=== PATIENT | male | born 1970 | race Caucasian/White ===

== ENCOUNTER 2020-01-29 20:54 | Emergency (ER) | payer OTHER ==
--- NOTE | 2020-01-29 21:46 | EDM.PDOC ---
ED [facility] GENERAL MEDICAL PROBLEM - General Chief Complaint: Genitourinary Problem Stated Complaint: KIDNEY STONES Time Seen by Provider: 01/29/20 21:44 Source of Information: Reports: Patient History Limitations: Reports: No Limitations - History of Present Illness INITIAL COMMENTS - FREE TEXT/NARRATIVE: Patient is 41-year-old male past medical history of kidney stones presenting with chief complaint of right lower quadrant pain and testicular pain. Patient states the pain is been ongoing intermittently for the past 2 days. Patient states the pain was more severe this evening and therefore he came to the hospital. Patient reports a pulling and sharp sensation to his right lower quadrant with radiation to the right testicle. Patient reports the pain is colicky in nature and not brought on by anything in particular. Patient denies any associated fevers nausea or vomiting. Patient states he does have associated increased urinary frequency as well as dark urine. Pmhx: Kidney stones Pshx: None Family Hx: noncontributory Smoking history? no Etoh use? Social Drug use? none In addition to that documented in the HPI above, the additional ROS was obtained : Constitutional: Denies fevers or chills Eyes: Denies vision changes ENMT: Denies sore throat CV: Denies chest pain Resp: Denies SOB GI: Denies vomiting or diarrhea : Denies painful urination MSK: Denies recent trauma Skin: Denies new rashes Neuro: Denies new numbness or tingling or weakness Endocrine: Denies unexpected weight loss Heme: Denies bleeding disorders I have reviewed the triage vital signs Const: Well nourished, well developed, appears stated age Eyes: PERRL, no conjunctival injection HENT: NCAT, Neck supple without meningismus CV: RRR, Warm, well-perfused extremities RESP: CTAB, Unlabored respiratory effort GI: soft, non-tender, non-distended, no masses. No McBurney's point tenderness : (RN Denise present) cremasteric reflexes intact, no swelling of the testicles , no testicular tenderness or epididymal tenderness. No external lesions or skin changes. MSK: No gross deformities appreciated Skin: Warm, dry. 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 Sensation and motor function of extremities grossly intact. Psych: Appropriate mood and affect Assessment and plan: Patient is a 41-year-old male presenting with right lower abdominal pain. Patient hemodynamically stable and vital signs unremarkable. Patient's ER course is uncomplicated. Patient was without pain during the entire ER stay. Labs did not demonstrate any significant abnormalities. Patient had no leukocytosis and normal renal function. Patient's CT scan demonstrates a 4 to 5 mm right-sided stone in the distal ureter which is the likely cause of his pain. Patient has no evidence of pyelonephritis. Also considered in differential or epididymitis as well as testicular torsion but based on history exam and lab findings, it seems very unlikely. Patient given return precautions. All questions addressed and answered. Patient will follow up with urology as an outpatient. right testicle Pain Score (Numeric/FACES): 2 - Related Data Allergies Allergy/AdvReac Type Severity Reaction Status Date / Time Penicillins Allergy Rash Verified 01/29/20 21:29 Home Meds: Home Meds Folic Acid 1 mg PO DAILY 10/31/18 [History] Ustekinumab [Stelara] 1 dose SUBCUT ASDIRECTED 10/31/18 [History] Tamsulosin HCl [Flomax] 0.4 mg PO DAILY #21 cap.er.24h 01/29/20 [Rx] Past Medical History Cardiovascular History: Reports: High Cholesterol, Hypertension Genitourinary History: Reports: Renal Calculus Musculoskeletal History: Reports: Other (See Below) Other Musculoskeletal History: PSORIATE ARTHRITIS Neurological History: Reports: Migraines Hematologic History: Reports: Anemia, Iron Deficiency Dermatologic History: Reports: Psoriasis - Infectious Disease History Infectious Disease History: Reports: None - Past Surgical History GI Surgical History: Reports: Colonoscopy, EGD Other Neurological Surgeries/Procedures: cervical spine stenosis, Social & Family History - Family History Family Medical History: Noncontributory - Tobacco Use Smoking Status *Q: Current Every Day Smoker Years of Tobacco use: 20 Packs/Tins Daily: 0.5 - Caffeine Use Caffeine Use: Reports: None - Recreational Drug Use Recreational Drug Use: No ED ROS GENERAL - Review of Systems Review Of Systems: See Below ED EXAM, RENAL/ - Physical Exam Exam: See Below Course - Vital Signs Last Recorded V/S: Last Vital Signs Temp 35.8 C L 01/29/20 21:31 Pulse 91 01/29/20 21:31 Resp 17 01/29/20 21:31 BP 160/118 H 01/29/20 21:31 Pulse Ox 96 01/29/20 21:31 - Orders/Labs/Meds Labs: Laboratory Tests 01/29/20 01/29/20 01/29/20 Range/Units 21:29 21:40 21:40 WBC 6.66 (4.0-11.0) K/uL RBC 5.41 (4.50-5.90) M/uL Hgb 16.1 (13.0-17.0) g/dL Hct 48.8 (38.0-50.0) % MCV 90.2 (80.0-98.0) fL MCH 29.8 (27.0-32.0) pg MCHC 33.0 (31.0-37.0) g/dL RDW Std Deviation 58.8 (28.0-62.0) fl RDW Coeff of Karen 18 H (11.0-15.0) % Plt Count 182 (150-400) K/uL MPV 9.10 (7.40-12.00) fL Neut % (Auto) 54.2 (48.0-80.0) % Lymph % (Auto) 29.6 (16.0-40.0) % [place] % (Auto) 15.2 H (0.0-15.0) % Eos % (Auto) 0.5 (0.0-7.0) % Baso % (Auto) 0.5 (0.0-1.5) % Neut # (Auto) 3.6 (1.4-5.7) K/uL Lymph # (Auto) 2.0 (0.6-2.4) K/uL [place] # (Auto) 1.0 H (0.0-0.8) K/uL Eos # (Auto) 0.0 (0.0-0.7) K/uL Baso # (Auto) 0.0 (0.0-0.1) K/uL Nucleated RBC % 0.0 /100WBC Nucleated RBCs # 0 K/uL Sodium 143 (136-148) mmol/L Potassium 3.7 (3.5-5.1) mmol/L Chloride 103 (98-107) mmol/L Carbon Dioxide 24.8 (21.0-32.0) mmol/L BUN 17 (7.0-18.0) mg/dL Creatinine 0.7 L (0.8-1.3) mg/dL Est Cr Clr Drug Dosing 129.06 mL/min Estimated GFR (MDRD) > 60.0 ml/min Glucose 92 (74-106) mg/dL Calcium 10.0 (8.5-10.1) mg/dL Total Bilirubin 0.5 (0.2-1.0) mg/dL AST 42 H (15-37) IU/L ALT 44 (14-63) IU/L Alkaline Phosphatase 80 (46-116) U/L Total Protein 8.1 (6.4-8.2) g/dL Albumin 4.4 (3.4-5.0) g/dL Globulin 3.7 (2.6-4.0) g/dL Albumin/Globulin Ratio 1.2 (0.9-1.6) Urine Color YELLOW Urine Appearance CLEAR Urine pH 6.0 (5.0-8.0) Ur Specific [place] <= 1.005 (1.001-1.035) Urine Protein NEGATIVE (NEGATIVE) mg/dL Urine Glucose (UA) NEGATIVE (NEGATIVE) mg/dL Urine Ketones NEGATIVE (NEGATIVE) mg/dL Urine Occult Blood LARGE H (NEGATIVE) Urine Nitrite NEGATIVE (NEGATIVE) Urine Bilirubin NEGATIVE (NEGATIVE) Urine Urobilinogen 0.2 (<2.0) EU/dL Ur Leukocyte Esterase NEGATIVE (NEGATIVE) Urine RBC 2-3 (0-2/HPF) Urine WBC 0-1 (0-5/HPF) Ur Epithelial Cells RARE (NONE-FEW) Urine Bacteria RARE (NEGATIVE) Departure - Departure Time of Disposition: 23:02 Disposition: Home, Self-Care 01 Clinical Impression: Kidney stone on right side - Discharge Information Prescriptions: Tamsulosin HCl [Flomax] 0.4 mg PO DAILY #21 cap.er.24h Instructions: Renal Colic, [id number] Referrals: Chelsie Covarrubias MD [Primary Care Provider] - Forms: ED Department Discharge Additional Instructions: The following information is given to patients seen in the emergency department who are being discharged to home. This information is to outline your options for follow-up care. We provide all patients seen in our emergency department with a follow-up referral. The need for follow-up, as well as the timing and circumstances, are variable depending upon the specifics of your emergency department visit. If you don't have a primary care physician on staff, we will provide you with a referral. We always advise you to contact your personal physician following an emergency department visit to inform them of the circumstance of the visit and for follow-up with them and/or the need for any referrals to a consulting specialist. The emergency department will also refer you to a specialist when appropriate. This referral assures that you have the opportunity for follow-up care with a specialist. All of these measure are taken in an effort to provide you with optimal care, which includes your follow-up. Under all circumstances we always encourage you to contact your private physician who remains a resource for coordinating your care. When calling for follow-up care, please make the office aware that this follow-up is from your recent emergency room visit. If for any reason you are refused follow-up, please contact the [facility] Emergency Department at and asked to speak to the emergency department charge nurse. Sepsis Event Note - Evaluation Sepsis Screening Result: No Definite Risk - Focused Exam Vital Signs: Vital Signs Temp Pulse Resp BP Pulse Ox 01/29/20 21:31 35.8 C L 91 17 160/118 H 96 Date Exam was Performed: 01/29/20 Time Exam was Performed: 23:08
[2020-01-29 22:09] LABS: BLOOD UREA NITROGEN,BUN 17 mg/dL (7.0-18.0); CARBON DIOXIDE,CO2 24.8 mmol/L (21.0-32.0); CHLORIDE,CL 103 mmol/L (98-107); GLUCOSE RANDOM 92 mg/dL (74-106); POTASSIUM,K 3.7 mmol/L (3.5-5.1); SODIUM,NA 143 mmol/L (136-148)
--- NOTE | 2020-01-29 22:55 | CT ---
INDICATION: Right abdominal pain TECHNIQUE: CT abdomen and pelvis without contrast. COMPARISON: None available FINDINGS: Lower chest: Unremarkable. Liver: Mild hepatic steatosis. Spleen: Unremarkable. Pancreas: Unremarkable. Gallbladder and bile ducts: Unremarkable. Adrenal glands: Unremarkable. Kidneys: Mild right pelviectasis with right perirenal stranding and edema, with a 4-5 mm calculus in the distal right ureter, just proximal to the UVJ. Nonobstructive bilateral renal calcifications measuring up to 1.0 x 0.7 cm in the right kidney and 1.5 x 1.0 x 1.6 cm in the left renal lower pole. Irregular parenchymal calcifications in the right kidney adjacent to an area of cortical scarring and a punctate parenchymal calcification in the left kidney along the posterior aspect of a 1.3 cm low-density lesion which could represent a cyst. An additional 1.2 cm left renal lower pole low-density lesion. GI tract: Unremarkable. Appendix is normal. Vascular structures: Atherosclerotic changes. Lymph nodes: Unremarkable. Miscellaneous: No significant free fluid or free air. Pelvic Organs: Unremarkable. Bones: A subacute to chronic fracture of the anterior left 6th rib. IMPRESSION: Mild right obstructive uropathy due to a 4-5 mm distal right ureteral calculus. Nonobstructive bilateral renal calculi and parenchymal calcifications. Left renal low-density lesions which could represent cysts, although not well evaluated. Follow-up with nonemergent sonography. Dictated by Dom Person MD @ 01/29/2020 10:54:25 PM Please note that all CT scans at this facility use dose modulation, iterative reconstruction, and/or weight-based dosing when appropriate to reduce radiation dose to as low as reasonably achievable. Dictated by: Dom Person MD @ 01/29/2020 22:54:37 (Electronically Signed)
== END 2020-01-29 23:24 | disposition home or self-care (01) ==
LOC: MW.ED 20:54
DX: N20.2 Calculus of kidney with calculus of ureter (principal); I10 Essential (primary) hypertension; F17.210 Nicotine dependence, cigarettes, uncomplicated; Z88.0 Allergy status to penicillin
CPT/HCPCS: 36415; 74176; 74176-26; 80053; 81001; 85025; 99283; 99284-25